=== PATIENT | male | born 1985 | race Caucasian/White ===

== ENCOUNTER 2016-07-17 11:17 | Emergency (ER) | payer BC, OTHER ==
[~2016-07-17] VITALS: Ht 198.1 cm; Wt 147.8 kg
[2016-07-17 11:20] VITALS: TEMP 37.1; Ht 198.1 cm; Wt 147.8 kg
[2016-07-17] MEDS ORDERED: OFLO0.3D4 OT (11:43)
[2016-07-17] MEDS ORDERED: ACET-1311 PO (11:44)
[2016-07-17] MEDS ORDERED: IBUP-1050 PO (11:45)
--- NOTE | 2016-07-17 11:47 | EMERGENCY ROOM VISIT NOTE ---
History First contact with patient: 11:24 Chief Complaint: EAR PAIN Stated Complaint: EAR INFECTION, BLISTERS ON FACE, EAR, MOUTH, PAIN History of Present Illness The patient is a 31 year old male who presents to the Emergency Room with complaints of facial rash. The patient states that over the weekend he had pain in the right ear. He was seen at urgent care and diagnosed with an external ear infection and started on Cipro drops. He states that yesterday he noticed blisters and a rash to the right side of his face, lips and right side of his tongue. It does not cross the midline. It is very painful and he rates his discomfort a 10/10. He reports tearing in the right eye. He denies any decreased vision, redness of the eye. He denies any lesion on his nose. He denies any fevers. Review of Systems A 10 system review of systems was completed with positives and pertinent negatives listed in the HPI. Past Medical/Surgical History Chronic back pain Social History Smoking Status: Never Smoker Housing Status: lives with family Occupation Status: employed Current/Historical Medications Scheduled Acetaminophen (Tylenol), 975 MG PO DAILY Cephalexin Monohydrate (Keflex), 500 MG PO QID Ibuprofen (Advil), 600 MG PO DAILY Ofloxacin (Otic) (Floxin Otic), 10 DROPS OT DAILY Valacyclovir Hcl (Valtrex), 1,000 MG PO TID Scheduled PRN Oxycodone Ir (Roxicodone Ir), 1-2 TAB PO Q4H PRN for Pain Allergies Uncoded Allergies: N (Allergy, Unknown, 07/10/02) NKDA (Allergy, Unknown, 07/10/02) Physical Exam Vital Signs Date Time Temp Pulse Resp B/P Pulse Ox O2 Delivery O2 Flow Rate FiO2 07/17/16 12:20 76 18 183/106 97 07/17/16 11:20 37.1 70 18 141/87 99 Room Air Physical Exam VITALS: Vitals are noted on the nurse's note and reviewed by myself. Vital signs stable. GENERAL: This is a 31-year-old male, in no acute distress, nondiaphoretic, well- developed well-nourished. SKIN: There are vesicles to the right ear and right side of the face. It involves the right half of the tongue. It does not cross the midline. There is no tenting of the skin. Capillary reflex less than 2 seconds. HEAD: Normocephalic atraumatic. EARS:The external auditory canal is edematous with drainage and blistering. There is marked tenderness to palpation. EYES: Pupils equal round and reactive to light and accommodation. Conjunctivae without injection, sclerae without icterus. Extraocular movements intact. A slit lamp was use to evaluate the right eye after fluorescein staining. There were no obvious dendritic lesions. NOSE: Patent, turbinates without inflammation or discharge. No sinus tenderness. MOUTH: Mucous membranes moist. Tonsils are not enlarged. Pharynx without erythema or exudate. Uvula midline. Airway patent. Tongue does not deviate. NECK: Supple without nuchal rigidity. No JVD. HEART: Regular rate and rhythm without murmurs gallops or rubs. LUNGS: Clear to auscultation bilaterally without wheezes, rales or rhonchi. No retractions or accessory muscle use. MUSCULOSKELETAL: No muscle atrophy, erythema, or edema noted. Full range of motion in all extremities. Normal gait. Strength 5/5 throughout. NEURO: Patient was alert and oriented to person place and time. No focal neurological deficits. Medical Decision & Procedures ED Course The patient was seen and examined. Previous visits were reviewed. The patient does not have a fever. He has a rash to the face consistent with shingles. A slit lamp exam was performed with fluorescein stain and there were no obvious dendritic lesions. The patient will be placed on Valtrex and oxycodone. The patient has been scratching the lesions and does have some redness to the skin. I do not feel that this truly represents cellulitis at this time but he was given a prescription for Keflex to start if he notices any purulent drainage or worsening redness. The patient should continue the eardrops. The patient should contact his eye doctor immediately if he develops any pain, redness in the right eye. He should return with any worsening symptoms. The case was discussed with Dr. Feng who agrees with the assessment and treatment plan. Medical Decision The differential diagnosis includes otitis externa, herpes zoster, herpes zoster ophthalmicus, cellulitis, among others [place] Drug Monitoring Program Search Results: patient reviewed within database, no issues identified Impression Primary Impression: Shingles Departure Information Dispostion Home / Self-Care Condition GOOD Prescriptions Cephalexin Monohydrate (Keflex) 500 Mg Cap 500 MG PO QID for 7 Days, #28 CAP Prov: Britt Roberts PA-C 07/17/16 Oxycodone Ir (Roxicodone Ir) 5 Mg Tab 1-2 TAB PO Q4H Y for Pain, #36 TAB For Initial Treatment Prov: Britt Roberts PA-C 07/17/16 Valacyclovir Hcl (VALTREX) 1 Gm Tab 1000 MG PO TID for 7 Days, #21 TAB Prov: Britt Roberts PA-C 07/17/16 Referrals Deonte Coles M.D. (PCP) Patient Instructions VIGNESH Prieto, [facility] Additional Instructions Valtrex every 8 hours for 7 days to help decrease the risk of postherpetic neuralgia Oxy IR 1-2 tablets every 4-6 hrs as needed for worse pain. No driving or alcohol use with Oxy IR. Contact your eye doctor to schedule an appointment immediately if he develops any pain, redness, worsening symptoms in the right eye; if you cannot see them, return to the ER Start the Keflex if fevers develop, pus is draining from the lesions Continue the eardrops Return if any worsening or concerning symptoms Problem Qualifiers Primary Impression: Ida
[2016-07-17] MEDS ORDERED: CEPH500C PO (12:13)
[2016-07-17] MEDS ORDERED: OXYC1TAB3 PO (12:13)
[2016-07-17] MEDS ORDERED: VALA1TAB2 PO (12:13)
[2016-07-17 12:20] VITALS: BP 183/106; PULSE 76; O2SAT 97
== END 2016-07-17 12:20 | disposition home or self-care (01) ==
LOC: C.EDB 11:19 → C.EDD 12:20
DX: B02.9 Zoster without complications (principal)